=== PATIENT | female | born 1970 | race Caucasian/White ===

== ENCOUNTER 2018-10-16 21:01 | Emergency (ER) | payer OTHER ==
--- NOTE | 2018-10-16 22:15 | RADIOLOGY REPORT (SQ) ---
EXAM DESCRIPTION: XR HAND 3 OR MORE VIEWS COMPLETED DATE/TME: 10/16/2018 00:00 CLINICAL HISTORY: 47 years, Female, dresser fell on left hand COMPARISON: None. NUMBER OF VIEWS: 3 TECHNIQUE: Four views of the LEFT hand were obtained in AP, lateral and oblique projection. LIMITATIONS: None. FINDINGS: No acute fracture or dislocation. The joint spaces are preserved. The soft tissues are within normal limits. IMPRESSION: No acute radiographic abnormality. copyright 2010 [employer]- All Rights Reserved
[2018-10-16] MEDS ORDERED: IBUPROFEN 600 MG TABLET PO ONE (22:59)
--- NOTE | 2018-10-16 23:08 | ER Document Report ---
ED General - General Chief Complaint: Hand Injury Stated Complaint: LEFT SWOLLEN HAND Time Seen by Provider: 10/16/18 22:02 Primary Care Provider: JUANCARLOS FORD MD [ACTIVE STAFF] - Follow up in 3-5 days Notes: Patient is a very pleasant 47-year-old female who says a heavy TV fell onto her left hand. She has swelling and pain to the hand. Most of the swelling is over the third MCP joint. She has her fingers in a flexed position and says she is unable to fully straighten out her finger. She denies any weakness or numbness into the hand. She says it hurts with any movement of her third MCP joint. He says she also fell on to her knees but says that the pain is mild and she is able to walk without difficulty. TRAVEL OUTSIDE OF THE [place] IN LAST 30 DAYS: No - Related Data Allergies/Adverse Reactions: Penicillins Allergy (Verified 10/16/18 22:35) Past Medical History - Social History Smoking Status: Never Smoker Frequency of alcohol use: None Drug Abuse: None Family History: Reviewed & Not Pertinent Review of Systems - Review of Systems Notes: My Normal Review Basic REVIEW OF SYSTEMS: CONSTITUTIONAL : Denies fever, chills, or sweats. Denies recent illness. EENT: Denies eye, ear, throat, or mouth pain or symptoms. Denies nasal or sinus congestion. CARDIOVASCULAR: Denies chest pain. RESPIRATORY: Denies cough, cold, or chest congestion. Denies shortness of breath, difficulty breathing, or wheezing. GASTROINTESTINAL: Denies abdominal pain. Denies nausea, vomiting, or diarrhea. Denies constipation. Last BM: GENITOURINARY: Denies difficulty urinating, painful urination, burning, frequency, or blood in urine. FEMALE GENITOURINARY: Denies vaginal bleeding, abnormal or irregular periods. LMP: MUSCULOSKELETAL: Pain and swelling to left hand. SKIN: Denies rash or skin lesions. HEMATOLOGIC : Denies easy bruising or bleeding. LYMPHATIC: Denies swollen, enlarged glands. NEUROLOGICAL: Denies altered mental status or loss of consciousness. Denies headache. Denies weakness or paralysis or loss of use of either side. Denies problems with gait or speech. Denies sensory or motor loss. PSYCHIATRIC: Denies anxiety or stress or depression. ALL OTHER SYSTEMS REVIEWED AND NEGATIVE. Physical Exam - Vital signs Vitals: Temp Pulse Resp BP Pulse Ox 98.1 F 93 20 142/79 H 96 10/16/18 21:19 10/16/18 21:19 10/16/18 21:19 10/16/18 21:19 10/16/18 21:19 - Notes Notes: General Appearance: Well nourished, alert, cooperative, no acute distress, moderate obvious discomfort. Vitals: reviewed, See vital signs table. Eyes: Conjuctiva clear Extremities: patient has significant swelling around the dorsum of the left third MCP joint. Sugars are held in a slightly flexed position. I am able to passively put them through extension and flexion however this does cause the patient some pain. Good distal capillary refill. Good sensation in all fingertips. No pain to palpation of the wrist. Skin: warm, dry, appropriate color, no rash Neuro: speech clear, oriented x 3, normal affect, responds appropriately to questions. Course - Re-evaluation Re-evalutation: 10/17/18 00:05 Based on the amount of swelling patient has at the MCP joint and the difficulty flex and extend the finger I suspect that she may have had a dislocation of the joint that reduced shortly after it was dislocated. I suspect she probably has some ligamentous injury to the third MCP joint. I placed her in a volar splint. I will have her follow-up closely with orthopedics this coming week. I encouraged her return to ER immediately if she has worsening pain, increasing swelling, decreased sensation, or if she feels is worsening in any way. Patient agrees with plan and will be discharged home. Dictation of this chart was performed using voice recognition software; therefore, there may be some unintended grammatical errors. - Vital Signs Vital signs: Temp Pulse Resp BP Pulse Ox 98.1 F 93 20 142/79 H 96 10/16/18 21:19 10/16/18 21:19 10/16/18 21:19 10/16/18 21:19 10/16/18 21:19 Procedures - Immobilization Left Hand Pre-Proc Neuro Vasc Exam: Normal Immobilizer type: Volar splint Performed by: PCT Post-Proc Neuro Vasc Exam: Normal Discharge - Discharge Clinical Impression: Hand injury Qualifiers: Encounter type: initial encounter Laterality: left Qualified Code(s): S69.92XA - Unspecified injury of left wrist, hand and finger(s), initial encounter Condition: Good Disposition: HOME, SELF-CARE Additional Instructions: I suspect that during the injury you may have had a brief dislocation of the third metacarpal phalangeal joint of your hand. This is based on the swelling and pain you have in that hand. This likely resulted in a ligamentous injury to the joint. I therefore placed you in a splint to help protect your hand. You should keep the splint on until you follow-up with the orthopedic doctor. I have placed the number to the orthopedic doctor, Dr. Ford. Please call his office to make an appointment to see him. Your splint has an Louis wrap around it. Sometimes you can have increased swelling in your arm or hand which will cause a splint to be too tight. Please loosen the Louis wrap around the splint if you start having any increasing pain or swelling or numbness into your hand. Please return to ER immediately if you continue have these symptoms despite loosening the splint. He can do ice packs on the hand to help reduce swelling. Motrin and Tylenol for pain is appropriate. Referrals: JUANCARLOS FORD MD [ACTIVE STAFF] - Follow up in 3-5 days
[2018-10-17 00:05] VITALS: BP 138/75
== END 2018-10-16 23:55 | disposition home or self-care (01) ==
LOC: ER 21:01
DX: S69.92XA Unspecified injury of left wrist, hand and finger(s), initial encounter (principal); W20.8XXA Other cause of strike by thrown, projected or falling object, initial encounter; Y99.0 Civilian activity done for income or pay
CPT/HCPCS: 99283

== ENCOUNTER 2018-12-21 10:52 | Day surgery (SDC) | payer OTHER ==
[2018-12-14 11:01] LABS: ABSOLUTE BASOPHILS # (AUTO) 0.1 10^3/uL (0.0-0.2); ABSOLUTE EOSINOPHILS # (AUTO) 0.1 10^3/uL (0.0-0.6); ABSOLUTE LYMPHOCYTES (AUTO) 1.5 10^3/uL (0.5-4.7); ABSOLUTE MONOCYTES (AUTO) 0.4 10^3/uL (0.1-1.4); ABSOLUTE NEUT (AUTO) 6.4 10^3/uL (1.7-8.2); BASOPHILS % (AUTO) 0.6 % (0-2); HEMATOCRIT 43.8 % (36.0-47.0); HEMOGLOBIN 14.6 g/dL (12.0-15.5); LYMPHOCYTES % (AUTO) 18.1 % (13-45); MEAN CORPUSCULAR HEMOGLOBIN 28.8 pg (27.0-33.4); MEAN CORPUSCULAR HGB CONC 33.3 g/dL (32.0-36.0); MEAN CORPUSCULAR VOLUME 87 fl (80-97); MONOCYTES % (AUTO) 5.3 % (3-13); PLATELET COUNT 277 10^3/uL (150-450); RED BLOOD COUNT 5.06 10^6/uL (3.72-5.28); RED CELL DISTRIBUTION WIDTH 13.4 % (11.5-14.0); TOTAL CELLS COUNTED % (AUTO) 100 %; WHITE BLOOD COUNT 8.5 10^3/uL (4.0-10.5)
[2018-12-14 11:26] LABS: ANION GAP 10 (5-19); BLOOD UREA NITROGEN 8 mg/dL (7-20); CALCIUM 9.6 mg/dL (8.4-10.2); CARBON DIOXIDE 29 mmol/L (22-30); CHLORIDE 102 mmol/L (98-107); GLUCOSE 100 mg/dL (75-110); POTASSIUM 4.3 mmol/L (3.6-5.0)
--- NOTE | 2018-12-14 14:27 | EKG REPORT ---
SEVERITY:- OTHERWISE NORMAL ECG - SINUS RHYTHM BORDERLINE LEFT AXIS DEVIATION : Confirmed by: Ranulfo Russo MD 14-Dec-2018 14:26:13
[~2018-12-21 10:52] MED LIST: BUPIVACAINE HCL 0.5 % INJ/PF 30 ML SDV ONE; CLINDAMYCIN 600 MG/D5W RTU 600 MG/50 ML RTUPB IV PRN; DEXAMETHASONE SOD PHOSPHATE INJ 4 MG/1 ML VIAL ONE; FENTANYL CITRATE INJ/PF 100 MCG/2 ML AMPUL ONE; LACTATED RINGERS 1000 ML IV PRN; MIDAZOLAM 2 MG/2 ML INJ ONE; ONDANSETRON HCL INJ/PF 4 MG/2 ML SDV ONE; PROPOFOL INJ 200 MG/20 ML VIAL IV ONE; SUCCINYLCHOLINE CHLORIDE INJ 200 MG/10 ML VIAL ONE
[2018-12-21] MEDS ORDERED: CLINDAMYCIN 600 MG/D5W RTU 600 MG/50 ML RTUPB IV ONE (11:37)
[2018-12-21] MEDS ORDERED: SCOPOLAMINE HYDROBROMIDE 1.5 MG PATCH.TD72 ONE (12:12)
[2018-12-21] MEDS ORDERED: FENTANYL CITRATE INJ/PF 100 MCG/2 ML AMPUL ONE (14:28)
[2018-12-21] MEDS ORDERED: MEPERIDINE HCL/PF INJ 25 MG/1 ML DISP.SYRIN IV PRN (15:20)
[2018-12-21] MEDS ORDERED: FENTANYL CITRATE INJ/PF 100 MCG/2 ML AMPUL IV PRN ×3 (15:20)
[2018-12-21] MEDS ORDERED: MORPHINE SULFATE 10 MG/ML INJ IV PRN (15:20)
[2018-12-21] MEDS ORDERED: PROMETHAZINE HCL INJ 25 MG/1 ML VIAL IV PRN ×2 (15:20)
[2018-12-21] MEDS ORDERED: DIPHENHYDRAMINE HCL 50 MG/ML VIAL IV PRN (15:20)
[2018-12-21] MEDS ORDERED: ONDANSETRON HCL INJ/PF 4 MG/2 ML SDV IV PRN ×2 (15:21→16:37)
[2018-12-21] MEDS ORDERED: HYDROMORPHONE HCL INJ/PF 2 MG/ML AMPULE IV PRN (16:37)
[2018-12-21] MEDS ORDERED: OXYCODONE-ACETAMINOPHEN 5-325 MG TABLET PO PRN (16:37)
--- NOTE | 2018-12-21 16:38 | Discharge Summary ---
Discharge Summary (SDC) - Discharge Final Diagnosis: Left Middle Finger MCP Ligament Tear Date of Surgery: 12/21/18 Condition: Good Treatment or Instructions: Schedule Follow Up w/ Dr. Alexsander Blank @ [facility] to be seen in 10-14 days or as scheduled [place]: [place]: [place]: Ice and elevate Keep splint clean/dry/intact, do not remove. If your fingers become numb please unwrap the Louis wrap but leave the splint in place, if the sensation does not return within 30 minutes please return to the emergency department. May begin finger range of motion attempting to make full fist. Please use ibuprofen (Motrin or Advil) 600-800 mg every 8 hours as needed for pain or fever DO NOT TAKE w/ TORADOL may use once TORADOL complete. You may also use acetaminophen (Tylenol) 1000 mg every 4-6 hours as needed for pain or fever. Please be aware that many medications contain acetaminophen, do not exceed a total of 1000 mg of acetaminophen every 6 hours. If ibuprofen and acetaminophen are not sufficient for your pain you may take the Percocet/Worden. Please be aware that the Percocet/Worden does contain Tylenol. Stool softener of choice when on pain medication. USE OF [id number] IBUPROFEN: Ibuprofen (Advil, Nuprin, Medipren, Motrin IB) is a medication for fever and pain control. In addition, it has anti- inflammatory effects which may be b eneficial, especially in the treatment of injuries. It's best to take ibuprofen with food. Persons with ulcer disease or allergy to aspirin should notify their physician of this before taking ib uprofen. Ibuprofen can be given every four to six hours, for a total of four doses daily. Age Pain or fever dose Antiinflammatory dose 6-8 yr 200 mg (1 tab) 200 mg (1 tab) 9-11 yr 200 mg (1 tab) 200-400 mg (1-2 tab) 11-14 yr 200-400 mg (1-2 tab) 400 mg (2 tab) 15-adult 400 mg (2 tab) 600 mg (3 tab) ORAL NARCOTIC MEDICATION: You have been given a prescription for pain control. This medication is a narcotic. It's best taken with food, as nausea can result if taken on an empty stomach. Don't operate machinery or drive within six hours of taking this medication. Do not combine this medicine with alcohol, or with any medication which can cause sedation (such as cold tablets or sleeping pills) unless you get permission from the physician. Narcotics tend to cause constipation. If possible, drink plenty of fluids and eat a diet high in fiber and fruits. Please be aware that prescription narcotics also have the potential for abuse. People become addicted to these medications because of the general sense of wellbeing that they induce. This feeling along with a significant reduction in tension, anxiety, and aggression provides a stimulating seductive quality to these drugs. Once your pain is under control, we encourage you to discard your unused narcotics. Prescriptions: Ketorolac Tromethamine [Toradol 10 mg Tablet] 10 mg PO Q8HP PRN #12 tablet PRN Reason: Oxycodone HCl/Acetaminophen [Percocet 7.5-325 mg Tablet] 1 tab PO Q6 PRN #25 tab PRN Reason: Discharge Diet: As Tolerated Respiratory Treatments at Home: Deep Breathing/Coughing, Incentive Spirometer Discharge Activity: No Lifting Over 10 Pounds, No Lifting/Push/Pulling Report the Following to Your Physician Immediately: Fever over 101 Degrees, Unusual Bleeding, Redness, Swelling, Warmth, Increased Soreness
--- NOTE | 2018-12-21 16:45 | Operative Report ---
Operative Report DATE OF SURGERY: 12/21/18 PREOPERATIVE DIAGNOSIS: Left middle finger radial collateral ligament tear. Le ft middle finger sagittal band rupture POSTOPERATIVE DIAGNOSIS: Same OPERATION: 1. Left middle finger radial collateral ligament repair. 2. Left middle finger radial sagittal band repair, extensor tendon realignment SURGEON: MACARENA BOWEN ANESTHESIA: GA COMPLICATIONS: None ESTIMATED BLOOD LOSS: Minimal PROCEDURE: Indication for above procedure: 48-year-old female who sustained injury at work resulting in a torsional mechanism to her left middle finger. Patient had MRI confirming radial collateral ligament rupture with sagittal band rupture. We discussed treatment options given the instability of her MCP joint and extensor tendon decision was made to proceed with operative intervention. Risk and benefits were explained patient verbalized understanding consented for surgical procedure. Procedure In Detail: Patient was seen and evaluated in the preoperative holding area. The upper extremity was initialized and marked. Patient received 600 mg of clindamycin IV for bacterial prophylaxis. Patient was taken back to the operative room where transferred to the operative table and placed under general anesthesia. Once they were adequately anesthetized a nonsterile tourniquet was placed on the upper extremity. A surgical team debriefing was performed ensuring all instrumentation was available, the surgical procedure was discussed with possible concerns reviewed. The upper extremity was prepped with chlorhexidine and alcohol and draped in a sterile fashion. A timeout was done identifying correct patient, procedure and extremity everyone in attendance agree with this and verbalized no concerns. The extremity was exsanguinated the tourniquet was inflated to 250 mmHg. Under C-arm fluoroscopy stress examination was performed to the MCP joint confirming insufficiency of the radial collateral ligament. Curvilinear skin incision was made along the third MCP joint. Blunt dissection was performed. Small peripheral veins were coagulated with bipolar cautery. There was notable insufficiency of the radial sagittal band with subluxation of the extensor tendon. The peritenon of the sagittal band was elevated from the extensor mechanism and undermined in a radial direction. The extensor tendon was also undermined proximally and distally and tenolysis performed to allow for later sagittal band repair with extensor tendon realignment. Capsulotomy was made along the radial aspect of the MCP joint. There was distal tear of the radial collateral ligament with scarring to the underlying capsule and some remanent along the proximal phalanx. Layers of the capsule were from the radial collateral ligament. Inspection confirmed adequate tissue for primary repair. The insertion of the radial collateral ligament was identified along the proximal phalanx. The bone was debrided C-arm fluoroscopy was obtained confirming adequate placement and a closed eyelet swivel lock anchor was implanted with FiberWire suture and a fiber tape. The FiberWire suture was then passed through the remaining radial collateral ligament with its intact insertion on the metacarpal with running Krakw sutures from distal to proximal to proximal to distal x2. This was then secured while maintaining 45 degrees of flexion of the MCP joint with slight radial directed pressure. This did provide adequate stability of the radial collateral ligament with excellent fixation to the proximal phalanx. To provide further stability decision was made to proceed with internal brace. An additional swivel lock anchor was then placed just proximal to the radial collateral ligament origin in both limbs of the fiber tape were placed. Adequate tension was confirmed while maintaining 45 degrees of flexion of the MCP joint and mild radial deviated force. After fixation patient had full passive range of motion there is no evidence of malrotation or deviation on clinical examination. Wound was copiously irrigated with normal saline. Capsule was closed with interrupted 3-0 Vicryl suture. To realign the extensor mechanism the peritenon radially was secured to the ulnar aspect of the extensor tendon realigning at midline. This was done with multiple 4-0 FiberWire sutures. This adequately provided fixation and reconstruction of the radial sagittal band. With passive flexion there is no evidence of residual extensor subluxation. Wound was copiously irrigated with normal saline. Tourniquet was deflated any peripheral veins were coagulated with bipolar cautery until the wound was dry. Subcutaneous tissues were closed with interrupted 4-0 Monocryl suture. Skin was closed with running horizontal mattress 4-0 nylon suture. 20 cc of 0.5% bupivacaine without epinephrine was injected for postoperative pain control. Sponge counts, instrument counts, needle counts were correct. Patient was then awoken from anesthesia. Transferred from the operating room table to the operating room stretcher. There was no intraoperative complications patient tolerated procedure well stable to PACU. Postop plan: We will set the patient up for occupational therapy to be fitted for a thermoplastic splint and begin PIP joint range of motion as per radial collateral ligament protocol.
[2018-12-21] MEDS: PROMETHAZINE HCL INJ 25 MG/1 ML VIAL ONE ×4 (16:52→17:15)
--- NOTE | 2018-12-21 16:55 | RADIOLOGY REPORT (SQ) ---
EXAM DESCRIPTION: HAND LEFT 3 VIEWS; NO CHG FLUORO COMPLETED DATE/TIME: 12/21/2018 4:21 pm REASON FOR STUDY: TENDON REPAIR S63.653A SPRAIN OF MCP JOINT OF LEFT MIDDLE FINGER, INIT S66.313A STRAIN EXTN MUSC/FASC/TEND L MID FINGER AT WRS/HND COMPARISON: 10/16/2018. FLUOROSCOPY TIME: 20 seconds. 6 images saved to PACS. TECHNIQUE: Intra-operative images acquired during surgical procedure to evaluate progress. NUMBER OF IMAGES: 6 images. LIMITATIONS: None. FINDINGS: IMAGES OF THE HAND ACQUIRED DURING THE PROCEDURE. IMPRESSION: IMAGE(S) OBTAINED DURING PROCEDURE. COMMENT: Quality ID [id number]: Final reports for procedures using fluoroscopy that document radiation exp osure indices, or exposure time and number of fluorographic images (if radiation exposure indices are not available) Please consult full operative report of the attending physician for description of the procedure. TECHNICAL DOCUMENTATION: JOB ID: [id number] [employer]- All Rights Reserved Reading location - IP/workstation name: [email or web address]
--- NOTE | 2018-12-21 16:55 | RADIOLOGY REPORT (SQ) ---
EXAM DESCRIPTION: HAND LEFT 3 VIEWS; NO CHG FLUORO COMPLETED DATE/TIME: 12/21/2018 4:21 pm REASON FOR STUDY: TENDON REPAIR S63.653A SPRAIN OF MCP JOINT OF LEFT MIDDLE FINGER, INIT S66.313A STRAIN EXTN MUSC/FASC/TEND L MID FINGER AT WRS/HND COMPARISON: 10/16/2018. FLUOROSCOPY TIME: 20 seconds. 6 images saved to PACS. TECHNIQUE: Intra-operative images acquired during surgical procedure to evaluate progress. NUMBER OF IMAGES: 6 images. LIMITATIONS: None. FINDINGS: IMAGES OF THE HAND ACQUIRED DURING THE PROCEDURE. IMPRESSION: IMAGE(S) OBTAINED DURING PROCEDURE. COMMENT: Quality ID [id number]: Final reports for procedures using fluoroscopy that document radiation exp osure indices, or exposure time and number of fluorographic images (if radiation exposure indices are not available) Please consult full operative report of the attending physician for description of the procedure. TECHNICAL DOCUMENTATION: JOB ID: [id number] [employer]- All Rights Reserved Reading location - IP/workstation name: [email or web address]
[2018-12-21] MEDS ORDERED: ACETAMINOPHEN 1,000 MG/100 ML RTUPB IV ONE (17:07)
[2018-12-21 18:57] VITALS: BP 123/78
== END 2018-12-21 18:55 | disposition home or self-care (01) ==
LOC: OROUT 10:52
PROVIDERS: ATTEND Orthopaedic Surgery
DX: S63.653A Sprain of metacarpophalangeal joint of left middle finger, initial encounter (principal); S66.313A Strain of extensor muscle, fascia and tendon of left middle finger at wrist and hand level, initial encounter; W22.8XXA Striking against or struck by other objects, initial encounter; Y92.69 Other specified industrial and construction area as the place of occurrence of the external cause; F17.210 Nicotine dependence, cigarettes, uncomplicated; Z85.41 Personal history of malignant neoplasm of cervix uteri; Z01.89 Encounter for other specified special examinations
CPT/HCPCS: 93005; 36415; 85025; 80048; 73130; 93010; 01810; 26540; 26437; J2250; J3490; J1100; J3010; J2550; J0330; J2405; J2704; J0131